=== PATIENT | female | born 1950 | race Caucasian/White ===

== ENCOUNTER 2018-04-02 14:52 | Outpatient (CLI) | payer OTHER ==
--- NOTE | 2018-04-02 15:29 | DI ---
EXAM: Six views of the lumbar spine. History: Lower back pain. Findings: Severe levoscoliosis of the lumbar spine. No acute fracture. 1 cm anterolisthesis of L5 on S1. 2 mm retrolisthesis of L2 onL3. Moderate disc space narrowing at L5-S1 and moderate facet hy pertrophy at L5-S1. Moderate disc space narrowing at L2-L3 with endplate sclerosis and small osteoph ytes. Mild disc space narrowing seen elsewhere. Moderate to large amount colonic stool. Air disten ded loops of colon seen within the upper abdomen are nonspecific. Impression: 1. No acute fracture. 2. Grade 1 to grade 2 anterolisthesis of L5 on S1. 3. Degenerative changes. 4. Scoliosis. 5. Nonspecific air distended loops of colon within the abdomen.
== END 2018-04-02 14:53 | disposition home or self-care (01) ==
LOC: RAD 14:52
PROVIDERS: ATTEND Family Medicine
DX: M54.5 Low back pain (principal)

== ENCOUNTER 2018-04-16 14:57 | Outpatient (CLI) | payer OTHER ==
--- NOTE | 2018-04-17 09:10 | DI ---
EXAM: Two views of the chest. History: Chest wall pain. Comparison: None available. Findings: Heart is mildly enlarged. No definite acute infiltrates. No appreciable pleural fluid an d no pneumothorax. No acute osseous abnormalities. Scoliosis. Impression: Mild cardiomegaly without acute disease in the chest.
== END 2018-04-16 14:58 | disposition home or self-care (01) ==
LOC: RAD 14:57
PROVIDERS: ATTEND Family Medicine
DX: R07.89 Other chest pain (principal)